=== PATIENT | male | born 1990 | race Caucasian/White ===

== ENCOUNTER 2016-03-27 12:53 | Emergency (ER) | payer BC, OTHER ==
--- NOTE | 2016-03-27 14:08 | REP ---
LEFT ANKLE: Four views. HISTORY: Pain in the lateral aspect of the ankle. Trauma. FINDINGS: Four views left ankle demonstrate an intact ankle mortise. No fracture or subluxation is seen. IMPRESSION: Negative views left ankle. Signed by Maksim Leach MD 03/27/2016 03:00 P
--- NOTE | 2016-03-27 14:27 | EDDOCDS ---
Physician Documentation [facility] Name: Aleksey Kapoor Age: 25 yrs Sex: Male : 1990 Arrival Date: 03/27/2016 Time: 12:53 Bed PR Private MD: NO PRIMARY PHYSICIAN, . Disposition: 03/27/16 14:17 Discharged to Home/Self Care. Impression: Pain in left ankle and joints of left foot. - Condition is Stable. - Discharge Instructions: Ankle Pain. - Medication Reconciliation, Local Pharmacy Hours form. - Follow up: Orthopaedics, [facility]; When: Call to arrange an appointment; Reason: Further diagnostic work-up, Recheck today's complaints, Continuance of care. - Problem is new. - Symptoms are unchanged. Historical: - Allergies: no known allergies; - Home Meds: 1. none - PMHx: Growth Plate Fracture; - PSHx: Ear Tubes; - Social history: Smoking status: Patient states former smoker of tobacco. No barriers to communication noted. - Family history: Not pertinent. - : The pt / caregiver states he / she is not on anticoagulants. Home medication list is obtained from the patient. - Exposure Risk Screening:: None identified. Vital Signs: 03/27 12:54 BP 127 / 77; Pulse 56; Resp 18; Temp 96.8(O); Pulse Ox 100% on R/A; Weight 56.7 kg / elp 125 lbs (R); Height 5 ft. 1 in. (154.94 cm) (R); Pain 8/10; 12:54 Body Mass Index 23.62 (56.70 kg, 154.94 cm) elp MDM: 13:29 Ankle, Complete Ordered. EDMS 13:52 Financial registration complete. lg Signatures: Dispatcher [employer] EDMS Jackosn Srivastava RN RN Oliver Daly, Murphy Reg lg Edwar Rosen PA PA btw Hafner, Jane, RN RN [facility] MTDD
--- NOTE | 2016-03-27 14:28 | EDDOCDS ---
Nurse's Notes [facility] Name: Aleksey Kapoor Age: 25 yrs Sex: Male : 1990 Arrival Date: 03/27/2016 Time: 12:53 Bed PR Private MD: NO PRIMARY PHYSICIAN, . Diagnosis: Pain in left ankle and joints of left foot Presentation: 03/27 13:05 Presenting complaint: Patient states: pain in left lateral ankle for a couple of days, [facility] no injuries, no swelling but horrible pain with pressure and walking. Adult Sepsis Screening: The patient does not have new or worsening altered mentation. Patient's respiratory rate is less than 22. Systolic blood pressure is greater than 100. Patient has a qSOFA score of 0- Negative Sepsis Screen. Suicide/Homicide risk assessment- the patient denies having any suicidal and/or homicidal ideations and does not present with any other emotional, behavioral or mental health complaints. Status: Patient is not a neuropsychology service director or dependent. Transition of care: patient was not received from another setting of care. 13:05 Acuity: WENDY Level 4 [facility] 13:05 Method Of Arrival: Walkin/Carried/Asstd [facility] Triage Assessment: 13:07 General: Appears in no apparent distress, comfortable, Behavior is appropriate for age, [facility] cooperative. Pain: Location: left foot, left lateral ankle and lateral aspect of left foot Pain currently is 8 out of 10 on a pain scale. At worst was 10 out of 10 on a pain scale. HIV screening NA for this visit Offered previously. Musculoskeletal: Range of motion limited in left ankle. Historical: - Allergies: no known allergies; - Home Meds: 1. none - PMHx: Growth Plate Fracture; - PSHx: Ear Tubes; - Social history: Smoking status: Patient states former smoker of tobacco. No barriers to communication noted. - Family history: Not pertinent. - : The pt / caregiver states he / she is not on anticoagulants. Home medication list is obtained from the patient. - Exposure Risk Screening:: None identified. Screenin:22 Screening information is obtained from the patient. Fall risk: No risks identified. dwg Assistance ADL's: requires no assistance with activities of daily living. Abuse/DV Screen: The patient / caregiver reports he/she is: not in a situation that causes fear, pain or injury. Nutritional screening: No deficits noted. Advance Directives: Currently, there is no health care proxy. There is no active DNR order. There is no living will. There is no Power of Quality Improvement Coordinator (Rn). Advance directive information has not previously been placed in an [facility] medical record. Further advance directive information is declined. home support is adequate. Assessment: 14:22 General: Appears in no apparent distress, Behavior is cooperative. General: Pain to [facility] left lateral foot for 2-3 days, no injury.. Pain: Pain currently is 8 out of 10 on a pain scale. Neurological: Level of Consciousness is awake, alert, Oriented to person, place, time. Respiratory: Airway is patent Respiratory effort is even, unlabored, Respiratory pattern is regular, symmetrical. Musculoskeletal: Circulation, motion, and sensation intact Capillary refill < 3 seconds Range of motion limited in left ankle and lateral aspect of left foot. Vital Signs: 12:54 BP 127 / 77; Pulse 56; Resp 18; Temp 96.8(O); Pulse Ox 100% on R/A; Weight 56.7 kg (R); elp Height 5 ft. 1 in. (154.94 cm) (R); Pain 8/10; 12:54 Body Mass Index 23.62 (56.70 kg, 154.94 cm) [facility] Vitals: 12:54 Log In Time: March 27, 2016 at 12:52. [facility] ED Course: 12:54 Patient visited by Antonina Delatorre PCA. elp 12:54 NO PRIMARY PHYSICIAN, . is Private Physician. elp 12:54 Patient moved to Waiting elp 12:55 Patient visited by Antonina Delatorre PCA. elp 12:55 Patient moved to Pre RCE elp 13:06 Triage Initiated cj 13:23 Edwar Rosen PA is PHCP. btw 13:23 Madhuri Norman MD is Attending Physician. btw 13:23 Patient visited by Edwar Rosen PA. btw 13:23 Patient moved to Triage 2 rs6 13:29 Patient moved to TR3 dwg 14:14 Patient moved to PR1 / 25 rs6 14:16 Orthopaedics, [facility] is Referral Physician. btw 14:25 The patient / caregiver is instructed regarding the plan of care and ED course. dwg 14:25 No IV's were initiated during this patient's visit. No procedures done that require dwg assistance. Order Results: There are currently no results for this order. Outcome: 14:17 Discharge ordered by Provider. btw 14:25 Discharge Assessment: Patient awake, alert and oriented x 3. No cognitive and/or dwg functional deficits noted. Patient verbalized understanding of disposition instructions. patient administered narcotics - no. The following High Risk Discharge criteria are identified: None. Discharged to home ambulatory. Condition: good Condition: stable. No special radiology studies were completed. Property sent home with patient. 14:25 Patient left the ED. dwg Signatures: Jackson Srivastava, RN RN Edwar Leblanc PA PA btw Annalise WatsonRN RN jami Antonina Delatorre, INSURANCE SALES MANAGER INSURANCE SALES MANAGER juanp Cindy Arias, INSURANCE SALES MANAGER INSURANCE SALES MANAGER rs6 BRITNEY
--- NOTE | 2016-03-29 15:27 | EDDOCDS ---
Nurse's Notes [facility] Name: Aleksey Kapoor Age: 25 yrs Sex: Male : 1990 Arrival Date: 03/27/2016 Time: 12:53 Bed PR Private MD: NO PRIMARY PHYSICIAN, . Diagnosis: Pain in left ankle and joints of left foot Presentation: 03/27 13:05 Presenting complaint: Patient states: pain in left lateral ankle for a couple of days, [facility] no injuries, no swelling but horrible pain with pressure and walking. Adult Sepsis Screening: The patient does not have new or worsening altered mentation. Patient's respiratory rate is less than 22. Systolic blood pressure is greater than 100. Patient has a qSOFA score of 0- Negative Sepsis Screen. Suicide/Homicide risk assessment- the patient denies having any suicidal and/or homicidal ideations and does not present with any other emotional, behavioral or mental health complaints. Status: Patient is not a customer servicer or dependent. Transition of care: patient was not received from another setting of care. 13:05 Acuity: WENDY Level 4 [facility] 13:05 Method Of Arrival: Walkin/Carried/Asstd [facility] Triage Assessment: 13:07 General: Appears in no apparent distress, comfortable, Behavior is appropriate for age, [facility] cooperative. Pain: Location: left foot, left lateral ankle and lateral aspect of left foot Pain currently is 8 out of 10 on a pain scale. At worst was 10 out of 10 on a pain scale. HIV screening NA for this visit Offered previously. Musculoskeletal: Range of motion limited in left ankle. Historical: - Allergies: no known allergies; - Home Meds: 1. none - PMHx: Growth Plate Fracture; - PSHx: Ear Tubes; - Social history: Smoking status: Patient states former smoker of tobacco. No barriers to communication noted. - Family history: Not pertinent. - : The pt / caregiver states he / she is not on anticoagulants. Home medication list is obtained from the patient. - Exposure Risk Screening:: None identified. Screenin:22 Screening information is obtained from the patient. Fall risk: No risks identified. dwg Assistance ADL's: requires no assistance with activities of daily living. Abuse/DV Screen: The patient / caregiver reports he/she is: not in a situation that causes fear, pain or injury. Nutritional screening: No deficits noted. Advance Directives: Currently, there is no health care proxy. There is no active DNR order. There is no living will. There is no Power of Glaze Carrier. Advance directive information has not previously been placed in an [facility] medical record. Further advance directive information is declined. home support is adequate. Assessment: 14:22 General: Appears in no apparent distress, Behavior is cooperative. General: Pain to [facility] left lateral foot for 2-3 days, no injury.. Pain: Pain currently is 8 out of 10 on a pain scale. Neurological: Level of Consciousness is awake, alert, Oriented to person, place, time. Respiratory: Airway is patent Respiratory effort is even, unlabored, Respiratory pattern is regular, symmetrical. Musculoskeletal: Circulation, motion, and sensation intact Capillary refill < 3 seconds Range of motion limited in left ankle and lateral aspect of left foot. Vital Signs: 12:54 BP 127 / 77; Pulse 56; Resp 18; Temp 96.8(O); Pulse Ox 100% on R/A; Weight 56.7 kg (R); elp Height 5 ft. 1 in. (154.94 cm) (R); Pain 8/10; 12:54 Body Mass Index 23.62 (56.70 kg, 154.94 cm) [facility] Vitals: 12:54 Log In Time: March 27, 2016 at 12:52. [facility] ED Course: 12:54 Patient visited by Antonina Delatorre PCA. elp 12:54 NO PRIMARY PHYSICIAN, . is Private Physician. elp 12:54 Patient moved to Waiting elp 12:55 Patient visited by Antonina Delatorre PCA. elp 12:55 Patient moved to Pre RCE elp 13:06 Triage Initiated cj 13:23 Edwar Rosen PA is PHCP. btw 13:23 Madhuri Norman MD is Attending Physician. btw 13:23 Patient visited by Edwar Rosen PA. btw 13:23 Patient moved to Triage 2 rs6 13:29 Patient moved to TR3 dwg 14:14 Patient moved to PR1 / 25 rs6 14:16 Orthopaedics, [facility] is Referral Physician. btw 14:25 The patient / caregiver is instructed regarding the plan of care and ED course. dwg 14:25 No IV's were initiated during this patient's visit. No procedures done that require dwg assistance. 14:37 Ankle, Complete Returned. EDMS 15:11 [facility] Payment Agreement was scanned into [employer] and attached to record. lg 03/28 10:11 T-Sheet-- Draft Copy was scanned into [employer] and attached to record. gb Order Results: Radiology Order: Ankle, Complete Test: Ankle, Complete REASON FOR EXAMINATION: PAIN LATERALLY;Trauma; LEFT ANKLE: Four views.; ; HISTORY: Pain in the lateral aspect of the ankle. Trauma.; ; FINDINGS: Four views left ankle demonstrate an intact ankle mortise. No; fracture or subluxation is seen.; ; IMPRESSION: Negative views left ankle.; ; ; Signed by; Maksim Leach MD 03/27/2016 03:00 P; Outcome: 03/27 14:17 Discharge ordered by Provider. [facility] 14:25 Discharge Assessment: Patient awake, alert and oriented x 3. No cognitive and/or dwg functional deficits noted. Patient verbalized understanding of disposition instructions. patient administered narcotics - no. The following High Risk Discharge criteria are identified: None. Discharged to home ambulatory. Condition: good Condition: stable. No special radiology studies were completed. Property sent home with patient. 14:25 Patient left the ED. dwg Signatures: Dispatcher [employer] KENROYCA Jackson Srivastava, SUNDEEP URBANO [facility] Radha Addison, Reg Reg gb Oliver Gonzales, Reg Reg lg Edwar Rosen PA PA btw Annalise Watson RN RN cj Antonina Delatorre, PLANT SECURITY GUARD PLANT SECURITY GUARD Cindy Amaya, PLANT SECURITY GUARD PLANT SECURITY GUARD rs6 Chart Complete [facility]
--- NOTE | 2016-03-29 15:27 | EDDOCDS ---
Physician Documentation [facility] Name: Aleksey Kapoor Age: 25 yrs Sex: Male : 1990 Arrival Date: 03/27/2016 Time: 12:53 Bed PR Private MD: NO PRIMARY PHYSICIAN, . Disposition: 03/27/16 14:17 Discharged to Home/Self Care. Impression: Pain in left ankle and joints of left foot. - Condition is Stable. - Discharge Instructions: Ankle Pain. - Medication Reconciliation, Local Pharmacy Hours form. - Follow up: Orthopaedics, [facility]; When: Call to arrange an appointment; Reason: Further diagnostic work-up, Recheck today's complaints, Continuance of care. - Problem is new. - Symptoms are unchanged. Historical: - Allergies: no known allergies; - Home Meds: 1. none - PMHx: Growth Plate Fracture; - PSHx: Ear Tubes; - Social history: Smoking status: Patient states former smoker of tobacco. No barriers to communication noted. - Family history: Not pertinent. - : The pt / caregiver states he / she is not on anticoagulants. Home medication list is obtained from the patient. - Exposure Risk Screening:: None identified. Vital Signs: 03/27 12:54 BP 127 / 77; Pulse 56; Resp 18; Temp 96.8(O); Pulse Ox 100% on R/A; Weight 56.7 kg / elp 125 lbs (R); Height 5 ft. 1 in. (154.94 cm) (R); Pain 8/10; 12:54 Body Mass Index 23.62 (56.70 kg, 154.94 cm) elp MDM: 13:29 Ankle, Complete Ordered. EDMS 13:52 Financial registration complete. lg 15:11 [facility] Payment Agreement was scanned into [employer] and attached to record. lg 03/28 10:11 T-Sheet-- Draft Copy was scanned into [employer] and attached to record. gb Signatures: Dispatcher [employer] EDMS Jackson Srivastava, RN RN dwRadha Foster, Reg Reg gb Oliver Gonzales, Reg Reg lg Edwar Rosen PA PA btw Hafner, Jane,RN RN [facility] The chart was reviewed and I authenticate all verbal orders and agree with the evaluation and treatment provided.Attachments: 03/27 15:11 [facility] Payment Agreement lg 03/28 10:11 T-Sheet-- Draft Copy gb Chart Complete MTDD
--- NOTE | 2016-03-29 15:27 | EDDOCDS ---
Physician Documentation [facility] Name: Aleksey Kapoor Age: 25 yrs Sex: Male : 1990 Arrival Date: 03/27/2016 Time: 12:53 Bed PR Private MD: NO PRIMARY PHYSICIAN, . Disposition: 03/27/16 14:17 Discharged to Home/Self Care. Impression: Pain in left ankle and joints of left foot. - Condition is Stable. - Discharge Instructions: Ankle Pain. - Medication Reconciliation, Local Pharmacy Hours form. - Follow up: Orthopaedics, [facility]; When: Call to arrange an appointment; Reason: Further diagnostic work-up, Recheck today's complaints, Continuance of care. - Problem is new. - Symptoms are unchanged. Historical: - Allergies: no known allergies; - Home Meds: 1. none - PMHx: Growth Plate Fracture; - PSHx: Ear Tubes; - Social history: Smoking status: Patient states former smoker of tobacco. No barriers to communication noted. - Family history: Not pertinent. - : The pt / caregiver states he / she is not on anticoagulants. Home medication list is obtained from the patient. - Exposure Risk Screening:: None identified. Vital Signs: 03/27 12:54 BP 127 / 77; Pulse 56; Resp 18; Temp 96.8(O); Pulse Ox 100% on R/A; Weight 56.7 kg / elp 125 lbs (R); Height 5 ft. 1 in. (154.94 cm) (R); Pain 8/10; 12:54 Body Mass Index 23.62 (56.70 kg, 154.94 cm) elp MDM: 13:29 Ankle, Complete Ordered. EDMS 13:52 Financial registration complete. lg 15:11 [facility] Payment Agreement was scanned into [employer] and attached to record. lg 03/28 10:11 T-Sheet-- Draft Copy was scanned into [employer] and attached to record. gb Signatures: Dispatcher [employer] EDMS Jackson Srivastava, RN RN dwRadha Foster, Reg Reg gb Oliver Gonzales, Reg Reg lg Edwar Rosen PA PA btw Hafner, Jane,RN RN [facility] The chart was reviewed and I authenticate all verbal orders and agree with the evaluation and treatment provided.Attachments: 03/27 15:11 [facility] Payment Agreement lg 03/28 10:11 T-Sheet-- Draft Copy gb Chart Complete MTDD
== END 2016-03-27 14:25 | disposition home or self-care (01) ==
LOC: M ED 12:53
DX: M25.572 Pain in left ankle and joints of left foot (principal); F17.210 Nicotine dependence, cigarettes, uncomplicated; Z87.81 Personal history of (healed) traumatic fracture

== ENCOUNTER 2016-07-09 07:33 | Emergency (ER) | payer BC, OTHER ==
[~2016-07-09] VITALS: Ht 154.9 cm; Wt 58.1 kg
[2016-07-09 07:37] VITALS: BP 123/79
[2016-07-09] MEDS ORDERED: AMOX500C PO (08:04)
[2016-07-09] MEDS ORDERED: NAPR500T PO (08:04)
[2016-07-09] MEDS ORDERED: AMOXICILLIN 500 MG CAP PO ONE (08:15)
[2016-07-09] MEDS ORDERED: NORCO, ANEXSIA 5/325MG TABLET (HYDROcodone/ACETAMINOPHEN) PO ONE (08:15)
== END 2016-07-09 08:23 | disposition home or self-care (01) ==
LOC: M ED 08:21
DX: H66.002 Acute suppurative otitis media without spontaneous rupture of ear drum, left ear (principal)

== ENCOUNTER 2016-07-27 10:19 | Emergency (ER) | payer BC, OTHER ==
[~2016-07-27] VITALS: Ht 154.9 cm; Wt 59.0 kg
[~2016-07-27 10:19] MED LIST: AMOX500C PO; NAPR500T PO
[2016-07-27] MEDS ORDERED: NORCO, ANEXSIA 5/325MG TABLET (HYDROcodone/ACETAMINOPHEN) PO ONE (10:45)
--- NOTE | 2016-07-27 11:10 | REP ---
Clinical: Trauma . Comparison: None. Findings: The ventricles, sulci, and cisterns are normal in position and appearance. Mackya-white differentiation is maintained. No acute intracranial hemorrhage, mass/mass effect, pathology or trauma/injury. No evidence for acute infarction. No extra-axial fluid collection. Calvarium is intact. Paranasal sinuses and mastoid air cells are clear. Impression: Normal noncontrast head CT. No evidence for acute intracranial pathology or trauma/injury. Signed by Leoncio Mercado MD 07/27/2016 11:02 A
--- NOTE | 2016-07-27 11:12 | REP ---
Clinical: Trauma. Technique: Axial noncontrast images through the facial bones to include the mandible with coronal and sagittal re-formations. Findings: The osseous structures are intact and there is no evidence for fracture or dislocation. Specifically, the bilateral zygomatic arches, nasal bones, and mandible including bilateral temporomandibular joints appear normal and symmetric. The sinuses and mastoid air cells are all well aerated and clear without fluid level to suggest occult trauma. The bilateral orbits including the globes and intraconal contents appear symmetric and normal. The surrounding soft tissues are grossly unremarkable. Impression: Normal maxillofacial CT. No evidence for acute pathology or trauma/injury. Signed by Leoncio Mercado MD 07/27/2016 11:03 A
--- NOTE | 2016-07-27 11:20 | REP ---
Clinical: Trauma. Technique: Frontal view of the chest with multiple views of the left hemithorax. Findings: Frontal view of the chest demonstrates no acute cardiopulmonary process. Multiple views of the left hemithorax demonstrates no obvious acute rib fracture or pathology. Impression: Normal left rib series Signed by Leoncio Mercado MD 07/27/2016 11:12 A
[2016-07-27 11:42] VITALS: BP 124/66
== END 2016-07-27 11:56 | disposition home or self-care (01) ==
LOC: M ED 11:07
DX: S06.0X0A Concussion without loss of consciousness, initial encounter (principal); S60.511A Abrasion of right hand, initial encounter; S60.512A Abrasion of left hand, initial encounter; S00.93XA Contusion of unspecified part of head, initial encounter; S20.219A Contusion of unspecified front wall of thorax, initial encounter; Y04.0XXA Assault by unarmed brawl or fight, initial encounter; Y92.39 Other specified sports and athletic area as the place of occurrence of the external cause; Y93.89 Activity, other specified; Y99.9 Unspecified external cause status

== ENCOUNTER 2016-09-22 08:10 | Emergency (ER) | payer BC, OTHER ==
[~2016-09-22] VITALS: Ht 154.9 cm; Wt 64.0 kg
[2016-09-22] MEDS ORDERED: NS 1,000 ML IV ONE (08:45)
[2016-09-22] MEDS ORDERED: ONDANSETRON 4MG/2ML VIAL (J2405) IV ONE (08:45)
[2016-09-22] MEDS ORDERED: MORPHINE 4 MG/ML 1ML SYRINGE IV ONE (08:45)
[2016-09-22 09:04] LABS: BASO # 0.1 K/mm3 (0.0-0.2); BASO % 0.7 % (0.0-1.0); EOS # 0.2 K/mm3 (0.0-0.50); EOS % 1.9 % (0.0-3.0); LARGE UNSTAINED CELL # 0.1 K/mm3 (0.0-0.4); LARGE UNSTAINED CELL % 1.4 % (0.0-4.0); LYMPH # 2.5 K/mm3 (1.5-6.5); LYMPH % 27.1 % (24.0-44.0); MEAN CORPUSCULAR HEMOGLOBIN 32.1 pg (27.0-33.0); MEAN CORPUSCULAR HGB CONC 34.7 g/dl (32.0-36.5); MEAN CORPUSCULAR VOLUME 92.5 fl (80.0-96.0); MONO # 0.6 K/mm3 (0.0-0.8); NEUTROPHILS # 5.4 K/mm3 (1.8-7.7); PLATELET COUNT, AUTOMATED 242 k/mm3 (150-450); RED CELL DISTRIBUTION WIDTH 12.3 % (11.5-14.5); WHITE BLOOD COUNT 8.7 K/mm3 (4.0-10.0)
[2016-09-22 09:12] LABS: INR 0.97
[2016-09-22 09:24] LABS: ALBUMIN 4.4 GM/DL (3.2-5.2); ALBUMIN/GLOBULIN RATIO 1.13 (1.00-1.93); ALKALINE PHOSPHATASE 70 U/L (45-117); ALT/SGPT 37 U/L (12-78); ANION GAP 6 MEQ/L (8-16); AST/SGOT 21 U/L (15-37); BILIRUBIN,DIRECT 0.2 MG/DL (0.0-0.2); BILIRUBIN,TOTAL 0.7 MG/DL (0.2-1.0); BLOOD UREA NITROGEN 18 MG/DL (7-18); CALCIUM LEVEL 8.9 MG/DL (8.5-10.1); CARBON DIOXIDE LEVEL 27 MEQ/L (21-32); CHLORIDE LEVEL 104 MEQ/L (98-107); CREATININE FOR GFR 1.26 MG/DL (0.70-1.30); GLOMERULAR FILTRATION RATE > 60.0 (>60); GLUCOSE, FASTING 91 MG/DL (70-105); POTASSIUM SERUM 3.9 MEQ/L (3.5-5.1); SODIUM LEVEL 137 MEQ/L (136-145); TOTAL PROTEIN 8.3 GM/DL (6.4-8.2)
[2016-09-22] MEDS ORDERED: ISOVUE-370 76% 100ML VIAL (Q9967) As Ordered ONE (09:34)
--- NOTE | 2016-09-22 10:06 | REP ---
CT of the chest with IV contrast: There is no pneumothorax, hemothorax or pulmonary contusion. There is no mediastinal hematoma. The thoracic aorta is unremarkable. There is no clavicle or scapular fracture. There is no rib, sternal or vertebral fracture. Impression: Negative CT study of the chest. Signed by Jackson Adam MD 09/22/2016 09:58 A
--- NOTE | 2016-09-22 10:11 | REP ---
CT of the abdomen and pelvis with IV contrast: Scanning is continued into the abdomen and pelvis utilizing the same IV contrast bolus as for the CT of the chest. There is no pneumoperitoneum or hemoperitoneum. The hepatic parenchyma, gallbladder, pancreas, spleen, adrenals, kidneys and abdominal aorta are unremarkable. There is no solid organ injury. The mesentery is unremarkable. There is no bowel wall thickening or distension. Pelvis: The appendix has a normal appearance. There is no free fluid or adenopathy. The bladder is unremarkable. There is no lumbar, sacral, iliac or ischial fracture. The right and left hips are unremarkable. Impression: No solid organ injury. No pneumothorax, or hemothorax. No fracture. Negative CT study of the abdomen and pelvis. Signed by Jackson Adam MD 09/22/2016 10:03 A
[2016-09-22 10:42] VITALS: BP 137/81
[2016-09-22] MEDS ORDERED: NORCOTAB PO (10:45)
== END 2016-09-22 11:06 | disposition home or self-care (01) ==
LOC: M ED 08:10
DX: S30.0XXA Contusion of lower back and pelvis, initial encounter (principal); R10.12 Left upper quadrant pain; R06.02 Shortness of breath; F17.210 Nicotine dependence, cigarettes, uncomplicated; W14.XXXA Fall from tree, initial encounter; Y92.9 Unspecified place or not applicable; Y99.9 Unspecified external cause status; Y93.9 Activity, unspecified
CPT/HCPCS: 71260; 74177; 80048; 80076; 81001; 83690; 85025; 85610; 85730; 86850; 86900; 86901; 96361; 96374; 96375; 99283; J2405; Q9967

== ENCOUNTER → 2017-12-30 | Outpatient (CLI) | payer BC, MEDICAID, OTHER, SELFPAY ==
[~2017-12-30] MED LIST changes: +NAPR-49 PO; -NAPR500T PO; +NORCOTAB PO
== END ==
LOC: M OUTALCOH 10:55
PROVIDERS: ATTEND Psychiatry & Neurology Psychiatry
DX: Z13.89 Encounter for screening for other disorder (principal)

== ENCOUNTER 2018-01-12 10:07 | Outpatient (RCR) | payer OTHER, SELFPAY | END 2018-01-29 | LOC: M OUTALCOH 10:07 | DX: F12.20 Cannabis dependence, uncomplicated (principal) ==

== ENCOUNTER 2018-02-26 08:45 | Outpatient (RCR) | payer BC, MEDICAID, OTHER ==
[~2018-02-26 08:45] MED LIST changes: -NAPR-49 PO; +NAPR-50 PO
== END 2018-03-01 ==
LOC: M OUTALCOH 08:45
PROVIDERS: ATTEND Psychiatry & Neurology Psychiatry
DX: F12.20 Cannabis dependence, uncomplicated (principal)

== ENCOUNTER 2018-03-03 09:57 | Outpatient (RCR) | payer OTHER | END 2018-04-01 | LOC: M OUTALCOH 09:57 | PROVIDERS: ATTEND Psychiatry & Neurology Psychiatry | DX: F12.20 Cannabis dependence, uncomplicated (principal) ==

== ENCOUNTER 2020-03-12 18:03 | Emergency (ER) | payer MEDICAID, OTHER ==
[~2020-03-12] VITALS: Ht 154.9 cm; Wt 56.3 kg
[~2020-03-12 18:03] MED LIST changes: +HYDR-3715 PO; -NAPR-50 PO; +NAPR-837 PO; -NORCOTAB PO
[2020-03-12] MEDS ORDERED: NS 1,000 ML IV ONE (19:45)
[2020-03-12] MEDS ORDERED: ONDANSETRON 4MG/2ML VIAL IV ONE (19:45)
[2020-03-12 20:34] LABS: BASO % 0.2 % (0.0-1.0); HEMATOCRIT 45.3 % (42.0-52.0); HEMOGLOBIN 14.2 g/dl (13.5-17.5); LYMPH # 1.1 10^3/uL (1.5-5.0); LYMPH % 12.7 % (24.0-44.0); MEAN CORPUSCULAR HEMOGLOBIN 28.7 pg (27.0-33.0); MEAN CORPUSCULAR HGB CONC 31.3 g/dl (32.0-36.5); MEAN CORPUSCULAR VOLUME 91.7 fl (80.0-96.0); MONO # 0.3 10^3/uL (0.0-0.8); MONO % 2.9 % (0.0-5.0); NEUTROPHILS # 7.6 10^3/uL (1.5-8.5); NEUTROPHILS % 83.8 % (36.0-66.0); PLATELET COUNT, AUTOMATED 342 10^3/uL (150-450); RED BLOOD COUNT 4.94 10^6/uL (4.30-6.10)
[2020-03-12 20:59] LABS: BLOOD UREA NITROGEN 11 MG/DL (7-18); CALCIUM LEVEL 8.7 MG/DL (8.5-10.1); CARBON DIOXIDE LEVEL 29 MEQ/L (21-32); CHLORIDE LEVEL 101 MEQ/L (98-107); CREATININE FOR GFR 0.81 MG/DL (0.70-1.30); GLOMERULAR FILTRATION RATE > 60.0 (>60); GLUCOSE, FASTING 113 MG/DL (70-100); POTASSIUM SERUM 3.9 MEQ/L (3.5-5.1); SODIUM LEVEL 134 MEQ/L (136-145)
[2020-03-12] MEDS ORDERED: ONDA4TAB6 PO (23:18)
[2020-03-12 23:27] VITALS: BP 145/95
== END 2020-03-12 23:36 | disposition home or self-care (01) ==
LOC: M ED 18:03
DX: F11.23 Opioid dependence with withdrawal (principal); Z86.19 Personal history of other infectious and parasitic diseases; F17.200 Nicotine dependence, unspecified, uncomplicated
CPT/HCPCS: 80048; 83605; 85025; 87040; 96361; 96374; 99284; J2405

== ENCOUNTER → 2020-03-26 | Outpatient (CLI) | payer OTHER ==
[~2020-03-26] MED LIST changes: +ONDA4TAB6 PO
== END ==
LOC: M OUTALCOH 09:30
PROVIDERS: ATTEND Psychiatry & Neurology Psychiatry
DX: F11.20 Opioid dependence, uncomplicated (principal); F15.10 Other stimulant abuse, uncomplicated; F12.10 Cannabis abuse, uncomplicated

== ENCOUNTER 2020-05-23 13:32 | Emergency (ER) | payer OTHER ==
[2020-05-23] MEDS ORDERED: CLINDAMYCIN 150MG CAPSULE PO ONE (16:15)
[2020-05-23] MEDS ORDERED: CLEO300C2 PO (17:02)
[2020-05-23] MEDS ORDERED: CLEO150C PO (17:02)
[2020-05-23 17:28] LABS: ALT/SGPT 27 U/L (12-78); BILIRUBIN,DIRECT 0.2 MG/DL (0.0-0.2); BILIRUBIN,TOTAL 0.5 MG/DL (0.2-1.0); BLOOD UREA NITROGEN 19 MG/DL (7-18); CALCIUM LEVEL 9.4 MG/DL (8.5-10.1); CARBON DIOXIDE LEVEL 30 MEQ/L (21-32); CHLORIDE LEVEL 99 MEQ/L (98-107); CREATININE FOR GFR 1.12 MG/DL (0.70-1.30); GLOMERULAR FILTRATION RATE > 60.0 (>60); GLUCOSE, FASTING 105 MG/DL (70-100); POTASSIUM SERUM 3.5 MEQ/L (3.5-5.1); SODIUM LEVEL 137 MEQ/L (136-145); TOTAL PROTEIN 7.8 GM/DL (6.4-8.2)
[2020-05-23 17:28] LABS: AMPHETAMINES LEVEL URINE POSITIVE (NEGATIVE); BARBITURATES URINE NEGATIVE (NEGATIVE); BENZODIAZEPINES URINE NEGATIVE (NEGATIVE); CANNABINOIDS URINE POSITIVE (NEGATIVE); COCAINE METABOLITE URINE NEGATIVE (NEGATIVE); METHADONE URINE POSITIVE (NEGATIVE); OPIATES URINE NEGATIVE (NEGATIVE); PHENCYCLIDINE URINE NEGATIVE (NEGATIVE)
[2020-05-23 17:30] LABS: BASO % 0.3 % (0.0-1.0); EOS # 0.1 10^3/uL (0.0-0.5); EOS % 1.1 % (0.0-3.0); HEMATOCRIT 39.6 % (42.0-52.0); LYMPH # 3.1 10^3/uL (1.5-5.0); LYMPH % 33.9 % (24.0-44.0); MEAN CORPUSCULAR HEMOGLOBIN 29.4 pg (27.0-33.0); MEAN CORPUSCULAR HGB CONC 32.8 g/dl (32.0-36.5); MEAN CORPUSCULAR VOLUME 89.6 fl (80.0-96.0); MONO # 0.8 10^3/uL (0.0-0.8); MONO % 8.5 % (2.0-8.0); NEUTROPHILS # 5.2 10^3/uL (1.5-8.5); NEUTROPHILS % 55.9 % (36.0-66.0); PLATELET COUNT, AUTOMATED 242 10^3/uL (150-450); RED BLOOD COUNT 4.42 10^6/uL (4.30-6.10); WHITE BLOOD COUNT 9.2 10^3/uL (4.0-10.0)
[2020-05-23 17:37] LABS: AMORPHOUS SEDIMENT SMALL (NEGATIVE); APPEARANCE, URINE HAZY (CLEAR); BACTERIA, URINE AUTO NEGATIVE (NEGATIVE); BILIRUBIN, URINE AUTO NEGATIVE (NEGATIVE); BLOOD, URINE BLOOD NEGATIVE (NEGATIVE); CALCIUM OXALATE CRYSTALS LARGE; COLOR, URINE AMBER (YELLOW); GLUCOSE, URINE (UA) AUTO NEGATIVE (NEGATIVE); KETONE, URINE AUTO NEGATIVE (NEGATIVE); LEUKOCYTE ESTERASE, URINE AUTO NEGATIVE (NEGATIVE); MUCUS, URINE SMALL (NEGATIVE); NITRITE, URINE AUTO NEGATIVE (NEGATIVE); PROTEIN, URINE AUTO 1+ mg/dL (NEGATIVE); RBC, URINE AUTO 1 /HPF (0-3); SQUAMOUS EPITHELIAL CELL UR AU 0 /HPF (0-6); WBC, URINE AUTO 0 /HPF (0-3)
== END 2020-05-23 17:19 | disposition home or self-care (01) ==
LOC: M ED 13:32
DX: L98.9 Disorder of the skin and subcutaneous tissue, unspecified (principal); F15.10 Other stimulant abuse, uncomplicated; Z79.891 Long term (current) use of opiate analgesic

== ENCOUNTER 2020-10-24 19:44 | Emergency (ER) | payer OTHER ==
[~2020-10-24] VITALS: Ht 152.4 cm; Wt 57.0 kg
[~2020-10-24 19:44] MED LIST changes: +CLEO150C PO; +CLEO300C2 PO
[2020-10-24 19:46] VITALS: BP 134/91
[2020-10-24] MEDS ORDERED: METH-1177 PO (19:51)
== END 2020-10-25 00:39 | disposition left against medical advice (07) ==
LOC: M ED 19:44
DX: Z53.29 Procedure and treatment not carried out because of patient's decision for other reasons (principal)

== ENCOUNTER 2021-06-10 11:04 | Emergency (ER) | payer OTHER ==
[~2021-06-10] VITALS: Ht 154.9 cm; Wt 63.6 kg
[~2021-06-10 11:04] MED LIST changes: +METH-1177 PO
[2021-06-10 11:31] VITALS: BP 141/99
[2021-06-10 12:10] LABS: HEMATOCRIT 43.5 % (42.0-52.0); HEMOGLOBIN 14.2 g/dl (13.5-17.5); MEAN CORPUSCULAR HEMOGLOBIN 29.7 pg (27.0-33.0); MEAN CORPUSCULAR HGB CONC 32.6 g/dl (32.0-36.5); PLATELET COUNT, AUTOMATED 236 10^3/uL (150-450); RED BLOOD COUNT 4.78 10^6/uL (4.30-6.10)
[2021-06-10 12:47] LABS: ALBUMIN 4.2 GM/DL (3.2-5.2); ALT/SGPT 173 U/L (12-78); BILIRUBIN,TOTAL 0.5 MG/DL (0.2-1.0); BLOOD UREA NITROGEN 22 MG/DL (7-18); CALCIUM LEVEL 9.5 MG/DL (8.5-10.1); CARBON DIOXIDE LEVEL 31 MEQ/L (21-32); CHLORIDE LEVEL 98 MEQ/L (98-107); CREATININE FOR GFR 1.55 MG/DL (0.70-1.30); GLOMERULAR FILTRATION RATE 56.3 (>60); GLUCOSE, FASTING 82 MG/DL (70-100); POTASSIUM SERUM 4.9 MEQ/L (3.5-5.1); SODIUM LEVEL 134 MEQ/L (136-145); TOTAL PROTEIN 7.7 GM/DL (6.4-8.2)
[2021-06-10] MEDS ORDERED: NS 1,000 ML IV ONE (13:50)
[2021-06-10 14:53] LABS: HEPATITIS B SURFACE ANTIGEN NEGATIVE (NEGATIVE)
[2021-06-10 15:21] LABS: HEPATITIS B CORE ANTIBODY IGM NEGATIVE (NEGATIVE)
[2021-06-10 15:22] LABS: GC DNA AMPLIFICATION NEGATIVE (NEGATIVE)
[2021-06-10 15:28] LABS: HEPATITIS C VIRUS ABY INDEX > 11.0 INDEX (<0.8)
== END 2021-06-10 16:02 | disposition home or self-care (01) ==
LOC: M ED 11:04
DX: M62.82 Rhabdomyolysis (principal); L72.0 Epidermal cyst; E86.0 Dehydration; Z79.891 Long term (current) use of opiate analgesic

== ENCOUNTER → 2023-11-30 | Outpatient (CLI) | payer OTHER ==
[~2023-11-30] MED LIST changes: +ONDA-282 PO; -ONDA4TAB6 PO
== END ==
LOC: M SOG 07:19
PROVIDERS: ATTEND Orthopaedic Surgery
DX: M25.521 Pain in right elbow (principal); Z53.9 Procedure and treatment not carried out, unspecified reason

== ENCOUNTER → 2023-12-09 | Outpatient (CLI) | payer OTHER | LOC: M SOG 07:24 | PROVIDERS: ATTEND Orthopaedic Surgery | DX: M25.521 Pain in right elbow (principal) ==